=== PATIENT | female | born 1985 | race American Indian/Alaskan Native ===

== ENCOUNTER 2020-10-05 09:09 | Day surgery (SDC) | payer OTHER ==
[2020-10-05] MEDS ORDERED: SODIUM CHLORIDE 0.9% 1000 ML 1,000 ML ONE (09:20)
--- NOTE | 2020-10-05 10:03 | Anesthesia Day of Surgery ---
Anesthesia Day of Surgery - Day of Surgery Patient Examined: Yes Patient H&P Reviewed: Yes Patient is NPO: Yes
--- NOTE | 2020-10-05 10:03 | Anesthesia Consultation ---
Anesthesia Consult and Med Hx Date of service: 10/05/20 - Airway Anesthetic Teeth Evaluation: Good ROM Head & Neck: Adequate Mental/Hyoid Distance: Adequate Mallampati Class: Class III Intubation Access Assessment: Possibly Difficult - Pre-Operative Health Status ASA Pre-Surgery Classification: ASA3 Proposed Anesthetic Plan: MAC - Gastrointestinal Hx Gastroesophageal Reflux Disease: Yes - Other Systems Hx Obesity: Yes (Morbid obesity, pre-bariatric assessment)
--- NOTE | 2020-10-05 11:14 | Post Anesthesia Evaluation ---
- Post Anesthesia Evaluation Patient Participated: Yes Airway Patent: Yes Stable Respiratory Function: Yes Nausea/Vomiting: No Temp > 96.8F: Yes Pain Manageable: Yes Adequeate Hydration: Yes Anesthesia Complications: No Block Receding Appropriately: Not Applicable Patient on Ventilator: No
[2020-10-05] MEDS ORDERED: SODIUM CHLORIDE 0.9% 1000 ML 1,000 ML IV SCH (11:15)
[2020-10-05] MEDS ORDERED: ONDANSETRON 4 MG/2 ML INJ ONE (11:25)
[2020-10-05] MEDS ORDERED: fentaNYL 100 MCG/2 ML INJ ONE (11:25)
[2020-10-05] MEDS ORDERED: LIDOCAINE MPF (2%) 20 MG/1 ML VIAL 5 ML ONE (11:25)
[2020-10-05] MEDS ORDERED: propofoL 200 MG/20 ML VIAL IV ONE (11:26)
--- NOTE | 2020-10-05 11:53 | Procedure Note ---
Date of procedure: 10/05/20 Pre-op diagnosis: Dypepsia/ Patient is to go for Bariatric Surgery Post-op diagnosis: other (Mild to Moderate Erosive Esophagitis/ Gastritis/No Peptic Ulcer diseease noted/ R/O Celiac disease/ R/o Eosinophilic esophagitis) Procedure: EGD with Biopsy [place] [facility] [place]: FATOU ISAAC Estimated blood loss: minimal Pathology: list Specimen disposition: to lab Condition: stable Disposition: same day (Treat with PPI. Avoid aspirin and NSAID for 5 days; otherwise resume home medication.)
--- NOTE | 2020-10-05 12:24 | Operative Report ---
PROCEDURE: Esophagogastroduodenoscopy with biopsy. INDICATIONS: This is a 35-year-old markedly obese -[place] female who is to have bariatric surgery done, possibly a gastric sleeve. She also has a slight dyspepsia. EGD was done to assess for any significant upper GI pathology. DESCRIPTION OF PROCEDURE: The procedure was done after getting informed consent with MAC anesthesia. Instrument was passed through the hypopharynx into the esophagus, which showed mild to moderate distal erosive esophagitis. Photo documentation and biopsy was done from the distal esophagus as well as the midesophagus to rule out for eosinophilic esophagitis. The stomach showed gastritis. Pylorus was patent. Duodenum in the first and the second portion appeared normal. Biopsy was done from the second part of the duodenum to rule out for possible celiac disease. Additional biopsy was done from the gastric antrum, gastric body and angular incisura to rule out for H. pylori and atrophic gastritis. There was minimal bleeding associated with the procedure. No complication was associated with the procedure. No peptic ulcer disease was noted. ASSESSMENT: Dyspepsia. The patient is to have bariatric surgery done, mild to moderate erosive esophagitis, gastritis, rule out celiac disease. No peptic ulcer disease noted. No significant hiatal hernia noted. PLAN: To treat the patient with PPI, have the patient avoid aspirin and aspirin-related products for the next few days. The patient is okay from a GI standpoint to have the bariatric surgery done. The patient will be asked to follow up in the office in 1-2 weeks' time. The procedure was done in the GI lab with assistance of the GI lab team, which included RN, Keyla Browne; rikki Reyes and the assistance of anesthesia. JOB# [id number] MARLA/VINICIUS
[2020-10-05 12:41] VITALS: BP 135/84
== END 2020-10-05 09:10 | disposition home or self-care (01) ==
LOC: GIO 09:09
DX: R10.13 Epigastric pain (principal); K31.89 Other diseases of stomach and duodenum; K29.70 Gastritis, unspecified, without bleeding; J45.909 Unspecified asthma, uncomplicated; K21.00 Gastro-esophageal reflux disease with esophagitis, without bleeding; I10 Essential (primary) hypertension; E66.01 Morbid (severe) obesity due to excess calories; Z68.43 Body mass index [BMI] 50.0-59.9, adult; Z79.899 Other long term (current) drug therapy
CPT/HCPCS: 43239; 88305; 88342; J2405; J2704; J3010; J7030

== ENCOUNTER 2022-07-07 09:42 | Day surgery (SDC) | payer OTHER ==
[~2022-07-07 09:42] MED LIST: SODIUM CHLORIDE 0.9% 1000 ML 1,000 ML IV SCH
--- NOTE | 2022-07-07 11:38 | Anesthesia Day of Surgery ---
Anesthesia Day of Surgery - Day of Surgery Patient Examined: Yes Patient H&P Reviewed: Yes Patient is NPO: Yes
--- NOTE | 2022-07-07 11:38 | Anesthesia Consultation ---
Anesthesia Consult and Med Hx Date of service: 07/07/22 - Airway Anesthetic Teeth Evaluation: Good ROM Head & Neck: Adequate Mental/Hyoid Distance: Adequate Mallampati Class: Class III Intubation Access Assessment: Possibly Difficult - Pre-Operative Health Status ASA Pre-Surgery Classification: ASA2 Proposed Anesthetic Plan: MAC - Pulmonary Hx Smoking: No Hx Respiratory Symptoms: No - Cardiovascular System Hx Hypertension: Yes (intermittent HTN, no meds; BP controlled today) - Central Nervous System CVA: No - Gastrointestinal Hx Gastroesophageal Reflux Disease: Yes (erosive esophagitis; hx bariatric surgery) - Endocrine Hx Renal Disease: No Hx Liver Disease: No Hx Insulin Dependent Diabetes: No Hx Non-Insulin Dependent Diabetes: No Hx Thyroid Disease: No - Other Systems Hx Obesity: Yes - Additional Comments Anesthesia Medical History Comments: No hx anesthetic complications.
[2022-07-07] MEDS ORDERED: propofoL 200 MG/20 ML VIAL IV ONE (12:02)
[2022-07-07] MEDS ORDERED: LIDOCAINE MPF (2%) 20 MG/1 ML VIAL 5 ML ONE (12:02)
--- NOTE | 2022-07-07 12:40 | Procedure Note ---
Date of procedure: 07/07/22 Pre-op diagnosis: S/P Gastric Sleeve (Bariatric surgery)/ Abdominal Pain Post-op diagnosis: other (Gastric body)/ R/O Celiac Disease) Procedure: EGD with Biopsy Anesthesia: MAC Surgeon: FATOU ISAAC Estimated blood loss: minimal Pathology: list Specimen disposition: to lab Condition: stable Disposition: same day (Treat with PPI,prn Bentyl and OTC Probiotic. Avoid aspirin and NSAID for 5 days; otherwise resume previous medication and F/U in 1to 2weeks ([phone]).)
--- NOTE | 2022-07-07 13:16 | Post Anesthesia Evaluation ---
- Post Anesthesia Evaluation Patient Participated: Yes Airway Patent: Yes Stable Respiratory Function: Yes Nausea/Vomiting: No Temp > 96.8F: Yes Pain Manageable: Yes Adequeate Hydration: Yes Anesthesia Complications: No
[2022-07-07 13:43] VITALS: BP 145/91
--- NOTE | 2022-07-07 16:32 | Operative Report ---
DATE OF SURGERY: 07/07/2022 PROCEDURE PERFORMED: EGD with biopsy. INDICATIONS: This is a 37-year-old -[place] female who had a gastric sleeve done a year ago. She has since lost about 85 pounds. Lately, she has been having some abdominal pain, usually with eating. EGD was done to make sure there was not any significant upper GI pathology present. DESCRIPTION OF PROCEDURE: Procedure was done after getting informed consent with MAC anesthesia. The instrument was passed through the hypopharynx into the esophagus, which showed some [id number] erosive esophagitis. Photodocumentation and biopsies were done from the distal esophagus. Biopsy was also done from the mid esophagus to rule out for eosinophilic esophagitis. Stomach showed some abnormal mucosa in the gastric body, possibly at the site of the surgery. Photodocumentation and biopsy was done from that area, but an additional biopsy was done from the gastric antrum and gastric body and angular incisura to rule out for H. pylori and atrophic gastritis with minimal bleeding. No peptic ulcer disease was noted within the gastric lumen or the duodenal lumen. The pylorus is patent. The duodenum in the second portion appeared normal. Biopsy was done from the second part to rule out for possible celiac disease. ASSESSMENT: Abdominal pain, status post bariatric surgery, status post gastric sleeve. No peptic ulcer disease noted, gastritis, normal gastric ulcer. Mild to moderate erosive esophagitis, rule out eosinophilic esophagitis, rule out celiac disease. PLAN: To treat the patient with PPI, p.r.n. dose of Bentyl. Encouraged the patient to take probiotics, avoid aspirin and aspirin-related products, have the patient follow up in the office in 1-2 weeks' time. Further treatment adjustment will be according to the biopsy findings. Procedure was done in the GI lab with assistance of the GI lab team, which included the GI nurse, the tool technician and with assistance of anesthesia. TID: [id number] RECEIPT: [id number] MARLA/SANDY
== END 2022-07-07 13:18 | disposition home or self-care (01) ==
LOC: GIO 09:42
DX: R10.9 Unspecified abdominal pain (principal); K29.50 Unspecified chronic gastritis without bleeding; K31.89 Other diseases of stomach and duodenum; I10 Essential (primary) hypertension; K21.00 Gastro-esophageal reflux disease with esophagitis, without bleeding; E66.9 Obesity, unspecified; Z68.41 Body mass index [BMI] 40.0-44.9, adult; Z98.84 Bariatric surgery status; Z88.8 Allergy status to other drugs, medicaments and biological substances; Z79.899 Other long term (current) drug therapy
CPT/HCPCS: 43239; 81025; 88305; J2704; J7030